=== PATIENT | male | born 1950 | race Caucasian/White ===

== ENCOUNTER 2016-07-11 06:45 | Inpatient (IN) | payer BC ==
[~2016-07-11 06:45] MED LIST: ALBUTEROL1.25 MG/3 INH; ASPIRIN81 M1 PO; COREG12.5 M1 PO; LIPITOR80 M1 PO; LOVENOX40 MG/0.1 SC; PERIDEX118 ML SSP; PRINIVIL20 M1 PO; RANITIDINE HCL150 M3 PO; SENOKOT-S TABL1 EACH PO; SKELAXIN800 M3 PO; SYMBICORT 160-1 PUFF INH; ZETIA10 M1 PO
[2016-07-11] MEDS ORDERED: IBUPROFEN400 M1 PO (08:02)
[2016-07-11 22:27] LABS: ABG CO2 ARTERIAL 29 mmol/L (21-27); ARTERIAL BLD GAS O2 SATURATION 98 % (95-98); ARTERIAL BLOOD GAS PCO2 39 mmHg (32-45); ARTERIAL PO2 100 mmHg (70-100); BICARBONATE 27 mmol/L (21-28); BLOOD GAS BASE EXCESS 4 mM/L (-/+3); PH 7.46 Units (7.35-7.45)
[2016-07-11 22:39] LABS: ALBUMIN 2.6 g/dl (3.5-5.0); ANION GAP 11 mmol/L (0-20); BLOOD UREA NITROGEN 22 mg/dl (6-24); CALCIUM 9.2 mg/dl (8.5-10.5); CARBON DIOXIDE-VENOUS 29 mmol/L (22-32); CHLORIDE 100 mmol/l (96-110); CREATININE 0.68 mg/dl (0.60-1.30); GLUCOSE 142 mg/dL (70-110); PHOSPHOROUS 4.8 mg/dl (2.5-4.9); POTASSIUM 4.8 mmol/L (3.7-5.1); SODIUM 135 mmol/L (135-145); eGFR VALUE FOR BLACK >90 mL/Min
[2016-07-13 04:18] LABS: BASO % 0.2 % (0-2); EOS % 1.7 % (0-7); EOSINOPHIL ABSOLUTE COUNT 0.2 tho/cmm (0.0-0.7); HCT-HEMATOCRIT 38.9 % (36.0-53.5); HGB-HEMOGLOBIN 12.7 gm/dl (13.5-17.0); IMMATURE GRANULOCYTES ABSOLUTE 0.07 tho/cmm (0-0.03); IMMATURE GRANULOCYTES PERCENT 0.5 % (0-0.3); LYMPH % 21.9 % (20-45); LYMPH ABSOLUTE COUNT 2.8 tho/cmm (0.8-4.5); MCH (MEAN CORPUSCULAR HGB) 29.2 pg (28.0-32.0); MCHC MEAN CORPUSCULAR HGB CONC 32.6 % (32.0-36.0); MCV (MEAN CELL VOLUME) 89.4 fl (82.0-96.0); MONO % 13.3 % (0-12); MONOCYTE ABSOLUTE COUNT 1.7 tho/cmm (0.0-1.2); NEUTROPHILS % 62.4 % (40-80); PLATELET COUNT 196 tho/cmm (150-450); RED BLOOD COUNT 4.35 mil/cmm (4.40-5.70); RED CELL DISTRIBUTION WIDTH 14.5 % (12.4-16.4); WHITE BLOOD COUNT 12.9 tho/cmm (4.0-10.0)
[2016-07-13 04:30] LABS: ANION GAP 11 mmol/L (0-20); BLOOD UREA NITROGEN 30 mg/dl (6-24); CARBON DIOXIDE-VENOUS 31 mmol/L (22-32); CHLORIDE 99 mmol/l (96-110); CREATININE 0.77 mg/dl (0.60-1.30); GLUCOSE 112 mg/dL (70-110); SODIUM 137 mmol/L (135-145); eGFR VALUE FOR BLACK >90 mL/Min
[2016-07-13 04:34] LABS: TSH-THYROID STIMULATING HORM. 9.53 uIU/ml (0.40-3.80)
[2016-07-13 04:35] LABS: POTASSIUM 3.9 mmol/L (3.7-5.1)
--- NOTE | 2016-07-13 05:37 | NUR ---
1939 [facility] NOTIFIED OF HYPOTENSION IN 70'S. 1948 FINA AT BEDSIDE SBP 80'S. REPORTED TO WATCH AND HOLD ALL HYPERTENSIVE MEDICATIONS OVER NIGHT.
== END 2016-07-13 13:33 | DRG 25 ==
LOC: SHSC 06:45 → ORE 10:30 → PACU 13:01 → CCU 14:20
PROVIDERS: Internal Medicine Critical Care Medicine; Physician Assistant; ADMIT Neurological Surgery
PROC: 0NR Head and Facial Bones, Replacement (ICD-10-PCS; principal; 2016-07-11)
PROC: 5A1935Z Respiratory Ventilation, Less than 24 Consecutive Hours (ICD-10-PCS; 2016-07-11)
DX: G93.2 Benign intracranial hypertension (principal); G93.6 Cerebral edema; J96.90 Respiratory failure, unspecified, unspecified whether with hypoxia or hypercapnia; I47.2 Ventricular tachycardia; J18.9 Pneumonia, unspecified organism; I42.9 Cardiomyopathy, unspecified; I50.20 Unspecified systolic (congestive) heart failure; E78.5 Hyperlipidemia, unspecified; Z68.41 Body mass index [BMI] 40.0-44.9, adult; G81.94 Hemiplegia, unspecified affecting left nondominant side; E11.9 Type 2 diabetes mellitus without complications; E66.01 Morbid (severe) obesity due to excess calories; G47.33 Obstructive sleep apnea (adult) (pediatric); Z43.1 Encounter for attention to gastrostomy; I25.2 Old myocardial infarction; Z43.0 Encounter for attention to tracheostomy; I25.10 Atherosclerotic heart disease of native coronary artery without angina pectoris; R13.10 Dysphagia, unspecified
CPT/HCPCS: C1713; J0690; J2270; J3010; J7040; J7121